=== PATIENT | male | born 1995 | race Hispanic/Latino ===

== ENCOUNTER 2019-10-14 13:57 | Emergency (ER) | payer MEDICAID, OTHER ==
[2019-10-14] MEDS ORDERED: ONDANSETRON HCL 4 MG/2 ML VIAL ONE (14:34)
[2019-10-14] MEDS ORDERED: MORPHINE SULFATE 2 MG/ML 1ML SYG ONE (14:35)
== END 2019-10-14 16:19 | disposition home or self-care (01) ==
LOC: EDH 13:57
DX: S43.005A Unspecified dislocation of left shoulder joint, initial encounter (principal); X58.XXXA Exposure to other specified factors, initial encounter; Y93.61 Activity, american tackle football; Y92.89 Other specified places as the place of occurrence of the external cause; Y99.8 Other external cause status
CPT/HCPCS: 23650; 73030 ×2; 96374; 96375; 99284; J2405